=== PATIENT | female | born 1990 | race Caucasian/White ===

== ENCOUNTER 2018-10-20 11:43 | Day surgery (SDC) | payer BC, OTHER ==
[~2018-10-20] VITALS: Ht 149.9 cm; Wt 64.8 kg
[2018-10-20] MEDS ORDERED: ACETAMINOPHEN 500 MG TABLET PO ONE (12:30)
[2018-10-20] MEDS ORDERED: PLEASE ENTER HEIGHT AND WEIGHT MC SCH (12:30)
[2018-10-20] MEDS ORDERED: PLEASE ENTER ALLERGIES MC SCH (12:30)
[2018-10-20] MEDS ORDERED: PREN-59 PO (12:31)
[2018-10-20 12:35] VITALS: BP 121/79
[2018-10-20 12:41] LABS: BASOPHILS # (AUTO) 0.01 x10^3/uL (0-0.1); BASOPHILS % (AUTO) 0 % (0-1); EOSINOPHILS # (AUTO) 0.03 x10^3/uL (0-0.4); EOSINOPHILS % (AUTO) 0 % (1-7); LYMPHOCYTES # (AUTO) 1.89 x10^3/uL (1-3.4); LYMPHOCYTES % (AUTO) 20 % (22-44); MD NO; MEAN CORPUSCULAR HEMOGLOBIN 31.3 pg (27.0-34.8); MEAN CORPUSCULAR HGB CONC 33.8 g/dL (32.4-35.8); MEAN CORPUSCULAR VOLUME 92.5 fL (80-100); MEAN PLATELET VOLUME 8.1 fL (7.4-10.4); MONOCYTES # (AUTO) 0.42 x10^3/uL (0.2-0.8); MONOCYTES % (AUTO) 5 % (2-9); NEUTROPHILS # (AUTO) 7.08 x10^3/uL (1.8-6.8); NEUTROPHILS % (AUTO) 75 % (42-75); PLATELET COUNT 266 x10^3/uL (130-400); RED CELL DISTRIBUTION WIDTH 12.9 % (9.6-15.2)
[2018-10-20] MEDS ORDERED: LACTATED RINGERS 1,000 ML IV SCH (12:41)
[2018-10-20] MEDS ORDERED: LIDOCAINE-MPF 1%, 2ML ONE ×2 (12:48→13:14)
[2018-10-20] MEDS ORDERED: SILVER NITRATE STICK TP ONE ×2 (12:51→12:52)
[2018-10-20] MEDS ORDERED: OXYTOCIN 10 UNITS/ML, 1ML ONE (12:51)
[2018-10-20] MEDS ORDERED: MISOPROSTOL 200 MCG TABLET ONE (12:51)
[2018-10-20] MEDS ORDERED: LIDOCAINE 1%, 20ML ONE (12:52)
[2018-10-20] MEDS ORDERED: VASOPRESSIN 20 UNIT/ML, 1ML ONE (12:52)
[2018-10-20] MEDS ORDERED: FENTANYL PF 100 MCG/2ML ONE (13:03)
[2018-10-20] MEDS ORDERED: HALOPERIDOL 5 MG/ML IV PRN ×2 (13:30)
[2018-10-20] MEDS ORDERED: PROCHLORPERAZINE 5 MG/ML, 2ML IV PRN (13:30)
[2018-10-20] MEDS ORDERED: FENTANYL PF 100 MCG/2ML IV PRN (13:30)
[2018-10-20] MEDS ORDERED: HYDROmorphone 2 MG/ML, 1ML IVPush PRN (13:30)
[2018-10-20] MEDS ORDERED: PROMETHAZINE 25 MG/ML, 1ML IV PRN (13:30)
[2018-10-20] MEDS ORDERED: MEPERIDINE/PF 25MG/0.5ML IVPush PRN (13:30)
[2018-10-20] MEDS ORDERED: DIPHENHYDRAMINE 50 MG/ML, 1ML IVPush PRN (13:30)
[2018-10-20] MEDS ORDERED: hydrALAzine 20 MG/ML, 1ML IV PRN (13:30)
[2018-10-20] MEDS ORDERED: METOPROLOL 1 MG/ML, 5ML IV PRN (13:30)
[2018-10-20] MEDS ORDERED: OXYcodone 5 MG/5 ML ORAL.SOL UDC PO PRN (13:30)
[2018-10-20] MEDS ORDERED: LABETALOL 5MG/ML, 20ML IV PRN (13:30)
[2018-10-20] MEDS ORDERED: MIDAZOLAM 1 MG/ML, 2ML ONE (13:35)
[2018-10-20] MEDS ORDERED: ONDANSETRON 2MG/ML, 2ML ONE (13:53)
[2018-10-20] MEDS ORDERED: CEFAZOLIN 1,000 MG ONE (13:53)
[2018-10-20] MEDS ORDERED: DEXAMETHASONE 4 MG/ML, 1ML ONE (13:53)
[2018-10-20] MEDS ORDERED: PROPOFOL 10 MG/ML, 20ML ONE (13:53)
== END 2018-10-20 16:45 | disposition home or self-care (01) ==
LOC: OUT 11:43
PROVIDERS: ATTEND Obstetrics & Gynecology
DX: O02.1 Missed abortion (principal); Z3A.09 9 weeks gestation of pregnancy
CPT/HCPCS: 36415; 59820; 84702; 85025; 86850; 86900; 88305; J0690; J1100; J2250; J2405; J2704; J3010; J2590

== ENCOUNTER 2019-07-25 19:08 | Outpatient (CLI) | payer OTHER, MEDICAID ==
[~2019-07-25] VITALS: Ht 149.9 cm; Wt 67.3 kg
[2019-07-25 19:00] VITALS: BP 119/75
[~2019-07-25 19:08] MED LIST: PREN-59 PO
[2019-07-25 20:07] LABS: MICROSCOPIC INDICATED
== END 2019-07-25 21:08 | disposition home or self-care (01) ==
LOC: LDOP 19:08
PROVIDERS: ATTEND Obstetrics & Gynecology
DX: O26.893 Other specified pregnancy related conditions, third trimester (principal); R10.9 Unspecified abdominal pain; Z3A.31 31 weeks gestation of pregnancy
CPT/HCPCS: 59025; 81001; 87086; 99211; G0463

== ENCOUNTER 2019-09-05 13:18 | Outpatient (CLI) | payer OTHER, MEDICAID ==
[~2019-09-05] VITALS: Ht 149.9 cm; Wt 66.8 kg
[2019-09-05 14:20] VITALS: BP 106/62
== END 2019-09-05 14:35 | disposition home or self-care (01) ==
LOC: LDOP 13:18
PROVIDERS: ATTEND Obstetrics & Gynecology
DX: Z34.93 Encounter for supervision of normal pregnancy, unspecified, third trimester (principal); Z3A.36 36 weeks gestation of pregnancy
CPT/HCPCS: 59025; 99211; G0463

== ENCOUNTER 2019-09-20 05:13 | Inpatient (IN) | payer OTHER, MEDICAID ==
[~2019-09-20] VITALS: Ht 149.9 cm; Wt 68.0 kg
[2019-09-20] MEDS ORDERED: OXYTOCIN 30U/ 0.9% NaCL 500ML 500 ML IV ONE (05:21)
[2019-09-20] MEDS ORDERED: OXYTOCIN 30U/ 0.9% NaCL 500ML 500 ML IV PRN (05:21)
[2019-09-20] MEDS ORDERED: SODIUM CITRATE/CITRIC ACID 30 ML UDC PO PRN (05:30)
[2019-09-20] MEDS ORDERED: METOCLOPRAMIDE 5 MG/ML, 2ML IVPush PRN (05:30)
[2019-09-20] MEDS ORDERED: FENTANYL PF 100 MCG/2ML IV PRN (05:30)
[2019-09-20] MEDS ORDERED: TERBUTALINE 1 MG/ML, 1ML SQ PRN (05:30)
[2019-09-20] MEDS ORDERED: FENTANYL PF 100 MCG/2ML IVPush PRN (05:30)
[2019-09-20] MEDS ORDERED: TERBUTALINE 1 MG/ML, 1ML IVPush PRN (05:30)
[2019-09-20 06:17] LABS: BASOPHILS # (AUTO) 0.11 x10^3/uL (0-0.1); BASOPHILS % (AUTO) 1 % (0-1); EOSINOPHILS # (AUTO) 0.15 x10^3/uL (0-0.4); EOSINOPHILS % (AUTO) 2 % (1-7); LYMPHOCYTES # (AUTO) 2.22 x10^3/uL (1-3.4); LYMPHOCYTES % (AUTO) 22 % (22-44); MD NO; MEAN CORPUSCULAR HGB CONC 34.1 g/dL (32.4-35.8); MEAN CORPUSCULAR VOLUME 96.9 fL (80-100); MEAN PLATELET VOLUME 7.3 fL (7.4-10.4); MONOCYTES # (AUTO) 0.52 x10^3/uL (0.2-0.8); MONOCYTES % (AUTO) 5 % (2-9); NEUTROPHILS # (AUTO) 7.19 x10^3/uL (1.8-6.8); NEUTROPHILS % (AUTO) 71 % (42-75); PLATELET COUNT 180 x10^3/uL (130-400); RED BLOOD COUNT 3.69 x10^6/uL (3.82-5.3); RED CELL DISTRIBUTION WIDTH 13.8 % (9.6-15.2)
[2019-09-20] MEDS ORDERED: NEWBORN KIT ONE (08:19)
[2019-09-20] MEDS ORDERED: LIDOCAINE 1%, 20ML ONE ×2 (08:19→08:20)
[2019-09-20] MEDS ORDERED: OXYTOCIN 30U/ 0.9% NaCL 500ML 500 ML ONE ×2 (08:19→13:42)
[2019-09-20] MEDS ORDERED: MISOPROSTOL 200 MCG TABLET ONE (08:19)
[2019-09-20] MEDS: LACTATED RINGERS 1,000 ML IV SCH ×2 (10:22→13:05)
[2019-09-20] MEDS ORDERED: FENTANYL/BUPIV./NS/PF 250 ML EPIDCONT ONE (12:34)
[2019-09-20] MEDS ORDERED: BUPIVACAINE 0.25% ONE (12:38)
[2019-09-20] MEDS ORDERED: OXYTOCIN 30U/ 0.9% NaCL 500ML 500 ML IV SCH (14:39)
[2019-09-20] MEDS ORDERED: OXYcodone IR 5MG TABLET PO PRN ×2 (15:00)
[2019-09-20] MEDS ORDERED: IBUPROFEN 600 MG TABLET PO PRN (15:00)
[2019-09-20] MEDS ORDERED: SIMETHICONE 80 MG CHEW TAB PO PRN (15:00)
[2019-09-20] MEDS ORDERED: ACETAMINOPHEN 325 MG TABLET PO PRN (15:00)
[2019-09-20] MEDS ORDERED: MISOPROSTOL 200 MCG TABLET PR PRN (15:00)
[2019-09-20] MEDS ORDERED: DOCUSATE 100 MG CAPSULE PO PRN (15:00)
[2019-09-20] MEDS: OXYTOCIN 30U/ 0.9% NaCL 500ML 500 ML IV SCH (15:04)
[2019-09-20 17:11] VITALS: BP 105/67
[2019-09-20 20:20] VITALS: BP 103/66
[2019-09-21] MEDS: OXYTOCIN 30U/ 0.9% NaCL 500ML 500 ML IV SCH ×2 (00:39→10:39)
[2019-09-21 01:15] VITALS: BP 103/69
[2019-09-21 02:22] LABS: BASOPHILS # (AUTO) 0.05 x10^3/uL (0-0.1); BASOPHILS % (AUTO) 0 % (0-1); EOSINOPHILS # (AUTO) 0.09 x10^3/uL (0-0.4); EOSINOPHILS % (AUTO) 1 % (1-7); LYMPHOCYTES # (AUTO) 2.58 x10^3/uL (1-3.4); LYMPHOCYTES % (AUTO) 18 % (22-44); MD NO; MEAN CORPUSCULAR HEMOGLOBIN 32.6 pg (27.0-34.8); MEAN CORPUSCULAR HGB CONC 33.5 g/dL (32.4-35.8); MEAN CORPUSCULAR VOLUME 97.3 fL (80-100); MEAN PLATELET VOLUME 7.7 fL (7.4-10.4); MONOCYTES # (AUTO) 0.69 x10^3/uL (0.2-0.8); MONOCYTES % (AUTO) 5 % (2-9); NEUTROPHILS # (AUTO) 11.35 x10^3/uL (1.8-6.8); NEUTROPHILS % (AUTO) 77 % (42-75); PLATELET COUNT 182 x10^3/uL (130-400); RED BLOOD COUNT 3.63 x10^6/uL (3.82-5.3); RED CELL DISTRIBUTION WIDTH 13.7 % (9.6-15.2)
[2019-09-21 04:10] VITALS: BP 113/82
[2019-09-21 07:35] VITALS: BP 116/80
[2019-09-21] MEDS ORDERED: PRENATAL VIT/IRON/FA 1 EACH TABLET PO SCH (09:00)
[2019-09-21] MEDS ORDERED: IBUP-1222 PO (13:22)
== END 2019-09-21 14:44 | disposition home or self-care (01) | DRG 807 ==
LOC: LDIP 05:13 → 2NW 16:40
PROVIDERS: ADMIT Obstetrics & Gynecology; ATTEND Obstetrics & Gynecology
PROC: 3E0R3BZ Introduction of Anesthetic Agent into Spinal Canal, Percutaneous Approach (ICD-10-PCS; principal; 2019-09-20)
PROC: 10E0XZZ Delivery of Products of Conception, External Approach (ICD-10-PCS; 2019-09-20)
PROC: 00HU33Z Insertion of Infusion Device into Spinal Canal, Percutaneous Approach (ICD-10-PCS; 2019-09-20)
DX: O69.81X0 Labor and delivery complicated by cord around neck, without compression, not applicable or unspecified (principal); Z37.0 Single live birth; O76 Abnormality in fetal heart rate and rhythm complicating labor and delivery; Z3A.39 39 weeks gestation of pregnancy
CPT/HCPCS: 36415; 85025; 86592; 86850; 86900; G0378; J2590; J7120